=== PATIENT | female | born 1955 | race Two or more races ===

== ENCOUNTER 2020-08-20 07:40 | Outpatient (CLI) | payer OTHER | END 2020-08-20 07:44 | disposition home or self-care (01) | LOC: TOM 07:40 | PROVIDERS: ATTEND Internal Medicine Gastroenterology | DX: K76.0 Fatty (change of) liver, not elsewhere classified (principal); K57.90 Diverticulosis of intestine, part unspecified, without perforation or abscess without bleeding; K56.600 Partial intestinal obstruction, unspecified as to cause; Z86.010 Personal history of colon polyps; Z12.11 Encounter for screening for malignant neoplasm of colon ==